=== PATIENT | male | born 1990 | race Hispanic/Latino ===

== ENCOUNTER 2016-12-28 19:53 | Emergency (ER) | payer OTHER ==
[~2016-12-28] VITALS: Ht 167.6 cm; Wt 95.3 kg
[2016-12-28] MEDS ORDERED: IPRATROPIUM 0.5MG/ALBUTEROL 2.5MG INH SOL UD 3ML (DUONEB)(J7620) NEB ONE (21:45)
[2016-12-28] MEDS ORDERED: MOBI7.5T10 PO (22:51)
[2016-12-28] MEDS ORDERED: ZANA4TAB PO (22:52)
[2016-12-28] MEDS ORDERED: CYCLOBENZAPRINE 10 MG TAB PO ONE (23:00)
[2016-12-28] MEDS ORDERED: NAPROXEN 250 MG TAB PO ONE (23:00)
[2016-12-28 23:17] VITALS: BP 162/94
--- NOTE | 2016-12-29 07:59 | REP ---
Chest two views HISTORY: Chest pain Comparison: None The lungs are clear. The heart is normal in size. The pulmonary vasculature is normal in appearance. The bony structure is intact. IMPRESSION: No acute disease. Signed by Marco Heath MD 12/29/2016 07:50 A
--- NOTE | 2016-12-29 16:39 | ECGEPIP ---
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
== END 2016-12-28 23:22 | disposition home or self-care (01) ==
LOC: M ED 20:20
DX: R07.89 Other chest pain (principal); F17.200 Nicotine dependence, unspecified, uncomplicated